=== PATIENT | male | born 1995 | race Caucasian/White ===

== ENCOUNTER 2023-12-20 08:52 | Emergency (ER) | payer OTHER, SELFPAY ==
--- NOTE | 2023-12-20 08:57 | ED.SKABFB ---
HPI - Skin/Abscess/Foreign Bdy General Chief complaint: Skin/Abscess/Foreign Body Stated complaint: poison norah/sumac/pulled ticks Time Seen by Provider: 12/20/23 09:15 Source: patient and RN notes reviewed Mode of arrival: ambulatory Limitations: no limitations History of Present Illness HPI narrative: 28-year-old male presents with concern for itchy rash and take bites. Reports they were on a float trip, he was in the was, walking through a [place]. He reports he removed to to ticks on Tuesday. Reported later that day he noticed a rash that started on his feet ankles, it has spread up his legs and now to his torso. He reports the rash has continued to spread even after coming home from the trip. He reports he had night sweats last night, otherwise denies fever, headache, general malaise. He reports he took Benadryl which helped slightly with the itching. He denies joint pain, abdominal pain, nausea, vomiting, sensitivity to light MD complaint: rash Related Data Allergies Allergy/AdvReac Type Severity Reaction Status Date / Time No Known Allergies Allergy Verified 12/20/23 09:11 Review of Systems Review of Systems: CONSTITUTIONAL: Denies malaise, chills, or fever. Reports night sweats last night EYES: Denies redness, or discharge. ENT: Denies rhinorrhea, congestion, swollen lips, swollen tongue CARDIOVASCULAR: Denies chest pain, palpitations, or edema. RESPIRATORY: Denies cough or dyspnea. GASTROINTESTINAL: Denies abdominal pain, nausea, vomiting SKIN: Reports itchy rash MUSCULOSKELETAL: Denies joint pain or myalgia. NEUROLOGIC: Denies headache. All systems reviewed & are unremarkable except as noted in HPI and below PMFSH Comments At time of signature, agree with nursing past medical, surgical, social and family history. There is no relevant family history pertinent to the presenting complaint Exam Narrative: GENERAL: Well-appearing, well-nourished, and in no acute distress. HEAD: Normocephalic, atraumatic. EYES: PERRLA, conjunctivae clear, and EOMI. ENT: Mucous membranes moist. Oropharynx without edema, erythema or lesions. NECK: Supple. No lymphadenopathy CHEST: Clear to auscultation. No respiratory distress. HEART: Regular rate and rhythm. SKIN: Warm, dry. Discrete erythematous papular rash noted heavily on the feet, ankles. The rash spreads to the calves, thighs and is starting to spread to the abdomen and arms. No erythema migrans noted, tick bite sites are unremarkable. NEURO: Alert and oriented x3. PSYCH: Normal mood and affect Course Course Emergency Course: Rumpel-Leede phenomenon tested: three linear lines of petechiae noted. Petechiae was gone before discharge Patient is aware of, understands and agrees to treatment plan. Anticipatory guidance given. Patient agrees to follow-up as directed and is aware of reasons to seek care at the emergency department. Portions of this record may have been created with voice recognition software Level of Care: Express Care Visit Vital Signs Vital signs: Reviewed. MDM - Skin/Abscess/Foreign Bdy MDM Narrative Medical decision making narrative: Does not appear at this time to be erythema multiforme, bullous, SJS, TEN, endocarditis; patient looks well, nontoxic and is tolerating oral intake; no neurologic signs or symptoms; no headache, photophobia or neck pain; afebrile; appropriate for initial outpatient treatment; discussed the importance of follow-up, patient agrees; question, viral exanthema, contact dermatitis, allergic dermatitis, eczema, urticaria, RMSF, Lyme disease, chigger bites, bug bites. No soft palate or uvula edema, no tongue, lip edema or other mucosal involvement, no respiratory compromise, no stridor, no wheezing, no wheezing, no history of syncope, no hypotension, no nausea, vomiting, or diarrhea. Instructed patient to go to nearest ER immediately for any worsening symptoms including but not limited to: fever, spreading rash, pain, sore thr
[2023-12-20 09:06] VITALS: BP 141/92; PULSE 66; RESP 20; TEMP 36.6; O2SAT 100
[2023-12-20 09:12] VITALS: BP 141/92; PULSE 66; RESP 20; TEMP 36.6; O2SAT 100
== END 2023-12-20 09:35 | disposition home or self-care (01) ==
PROVIDERS: Emergency Provider Nurse Practitioner
DX: T14.8XXA Other injury of unspecified body region, initial encounter (principal); W57.XXXA Bitten or stung by nonvenomous insect and other nonvenomous arthropods, initial encounter; R21 Rash and other nonspecific skin eruption
CPT/HCPCS: 99203; G0463

== ENCOUNTER 2025-03-21 14:27 | Emergency (ER) | payer OTHER, SELFPAY ==
[2025-03-21 14:30] VITALS: BP 143/94; PULSE 74; RESP 16; TEMP 36.7; O2SAT 100
--- NOTE | 2025-03-21 14:43 | ED_ITS ---
HPI - Dental/Oral General Chief complaint: Dental/Oral Stated complaint: tooth pain Time Seen by Provider: 03/21/25 14:36 Source: patient and RN notes reviewed Mode of arrival: ambulatory Limitations: no limitations History of Present Illness HPI Narrative: 29-year-old male patient presents today complaining of pain to the right lower gumline last night. States he has had a broken tooth for some time and had it scheduled to be pulled approximately 2 months ago but missed the appointment and has not rescheduled. Currently rates his pain 4/10. No OTC treatment prior to arrival. Denies any additional symptoms to include fever, shortness of breath, difficulty swallowing, trismus. Related Data Allergies Allergy/AdvReac Type Severity Reaction Status Date / Time No Known Allergies Allergy Verified 03/21/25 14:31 PMFSH Comments At time of signature, I have reviewed and agree with nursing past medical, surgical, social and family history unless otherwise noted. Please see nursing chart for further information. There is no relevant family history pertinent to the presenting complaint Exam Narrative: GENERAL: Well-appearing, well-nourished, and in no acute distress. HEAD: Normocephalic, atraumatic. EYES: EOMI. No redness or drainage. Conjunctivae normal. ENT: Mucous membranes pink and moist. Throat normal. Uvula midline. Tooth 30 is broken with only a small portion remaining that is black in color. No obvious periapical abscess or gingival swelling noted. No sublingual swelling or obvious facial swelling noted. No trismus. Gross dental decay noted. NECK: Normal AROM. Supple. No lymphadenopathy. CHEST: No respiratory distress. EXTREMITIES: Normal range of motion. No edema. SKIN: Warm, dry, no rash. Capillary refill normal. Normal skin turgor. NEURO: No focal deficits. Alert and oriented x3. Gait steady. PSYCH: Normal affect. No signs of depression or anxiety. Course Course Level of Care: Express Care Visit Vital Signs Vital signs: Vital Signs Temperature 98.0 F 03/21/25 14:30 Pulse Rate 74 03/21/25 14:30 Respiratory Rate 16 03/21/25 14:30 Blood Pressure 143/94 H 03/21/25 14:30 Pulse Oximetry 100 03/21/25 14:30 Oxygen Delivery Room Air 03/21/25 14:30 Temperature 98.0 F 03/21/25 14:30 Pulse Rate 74 03/21/25 14:30 Respiratory Rate 16 03/21/25 14:30 Blood Pressure 143/94 H 03/21/25 14:30 Pulse Oximetry 100 03/21/25 14:30 Oxygen Delivery Room Air 03/21/25 14:30 Reviewed MDM - Dental/Oral MDM Narrative Medical decision making narrative: 29-year-old male patient presents today complaining of pain to the right lower gumline last night. States he has had a broken tooth for some time and had it scheduled to be pulled approximately 2 months ago but missed the appointment and has not rescheduled. Currently rates his pain 4/10. No OTC treatment prior to arrival. Upon exam, Tooth 30 is broken with only a small portion remaining that is black in color. No obvious periapical abscess or gingival swelling noted. No sublingual swelling or obvious facial swelling noted. Patient will be treated with a course of amoxicillin for presumed infection. Patient will call and schedule a follow-up visit with his dentist. Vital signs stable. Patient agrees with plan. Anticipatory guidance and ED precautions given. Critical Care Time Critical Care Time Critical Care Time: No Discharge Plan Discharge Clinical Impression: Dental caries Patient Disposition: Home Condition: Stable Instructions: Antibiotic Form Additional Instructions: Please take the amoxicillin as prescribed until gone. Start an anti- inflammatory such as Aleve or ibuprofen for discomfort. Follow-up with a denti st as soon as possible for further evaluation. As discussed, if you develop worsening symptoms such as shortness of breath, fever, difficulty swallowing, difficulty opening your mouth, significant facial or neck swelling, please go to the ER immediately for further evaluation and treatment. Patient Language: Scottish Prescriptions: New amoxicillin 875 mg tablet 875 mg PO Q12H 10 Days Qty: 20 0RF Follow-up/Referrals: PHYSICIAN,SENIOR CORPORATE RECRUITER [Primary Care Provider, Internal Medicine] Time of Disposition: 14:47
== END 2025-03-21 14:48 | disposition home or self-care (01) ==
PROVIDERS: Emergency Provider Nurse Practitioner
DX: K02.9 Dental caries, unspecified (principal)
CPT/HCPCS: 99213; G0463